=== PATIENT | male | born 1990 | race Caucasian/White ===

== ENCOUNTER 2025-02-01 09:08 | Emergency (ER) | payer OTHER, SELFPAY ==
[2025-02-01 09:08] VITALS: BP 124/89; PULSE 73; RESP 14; TEMP 36.1; O2SAT 98; BMI 48.5
[2025-02-01 09:41] LABS: Bacteria 0 SEEN /hpf (None Seen); Mucous, Urine 0 SEEN /hpf (<or=2+); Squamous Epithelial Cells - UA 0 SEEN /hpf (0-5)
--- NOTE | 2025-02-01 09:43 | EX.ED.DYSGE1 ---
HPI History of Present Illness Chief Complaint: Complaint Narrative Narrative: Patient is a 35-year-old male who presents to the emergency department with a chief complaint of lower abdominal pain. He states that when he was a young child he was told that he had a piece of tissue blocking his 1 ureter that ultimately required intervention. He states that over the last 1 to 2 years he has felt like he has had some difficulty emptying his bladder completely however the last 1 to 2 weeks this is significantly worsened. He states that he followed up with his doctor recently had a ultrasound of his bladder and was told that it was full and was advised to come to the emergency department to be evaluated. He states that he is scheduled to see the urologist Dr. Hogue but will not be able to get until Saturday. PFSH PFSH Medical History no medical history Home Medications ?Medication ?Instructions ?Recorded ?Last Taken ?Type Fish OiL 02/01/25 Unknown History coQ10 (ubiquinol) 100 mg capsule 100 mg PO DAILY 02/01/25 Unknown History red yeast rice PO 02/01/25 01/31/25 History saw-vit E-sod [id number]-pyg PO 02/01/25 Unknown History tamsulosin 0.4 mg capsule (Flomax) 0.4 mg PO DAILY 14 days #14 caps 02/01/25 Unknown Rx Allergy/AdvReac Type Severity Reaction Status Date / Time No Known Allergies Allergy Verified 02/01/25 09:09 Surgical History no surgical history Social History Smoking Status: Never smoker ROS ROS ED ROS Narrative Constitutional: Denies any fevers, chills, headaches, lightness, dizziness Cardiovascular: Denies chest pain or palpitations Respiratory: Denies cough wheezing shortness of breath Abdomen: Denies abdominal pain nausea vomiting diarrhea : Complains of urinary symptoms as noted above Neurological: Denies numbness, weakness, tingling Musculoskeletal: Denies back pain Skin: Denies any rashes or lesions EXAM Physical Exam Narrative Exam Narrative: General: Patient lying in bed rest comfortably did not appear to be in acute distress Head: Atraumatic, normocephalic Eyes: PERRL bilaterally, EOMI bilateral, no conjunctival injection noted Neck: Soft, supple, trachea midline Cardiovascular: Regular rate and rhythm no murmurs gallops rubs noted Respiratory: Clear to auscultation bilaterally Abdomen: Soft, nondistended, tenderness to palpation in the right lower quadrant in the suprapubic region no rebound or guarding on exam Extremities: +5/5 strength noted in the bilateral upper and lower extremities, radial pulses +2/4 in the bilateral extremities Neurological: Patient was following commands knew that he was at [facility] year is 2024 Skin: Warm, dry, intact no rashes or lesions noted Const Vital Signs: 02/01/25 09:08 02/01/25 11:08 Temperature 97 F L Temperature Source Temporal Pulse Rate 73 70 Respiratory Rate 14 18 Blood Pressure 124/89 H 128/70 H Blood Pressure Mean 100 89 Pulse Ox 98 98 Oxygen Delivery Method Room Air MDM MDM MDM Narrative Medical decision making narrative: Patient is a 35-year-old male who presented to the emergency department the chief complaint of difficulty completing emptying his bladder. On the differential diagnosis includes but not limited to urinary tension, ZOLTAN, UTI, appendicitis, bowel obstruction. Once workup is obtained and reviewed he will be reevaluated. Patient urinated here in the emergency day prior to this he had 230 cc of urine in his bladder after urinating he had 75 cc. Patient's CBC reviewed showed a white blood count 11,000, hemoglobin 15.4, platelet count of 190. Patient sodium was 137, potassium of 4.3, creatinine normal at 0.94. Patient's AST and ALT were 28 and 43 respectively normal total bilirubin 1.37. Patient urinalysis reviewed showed 25 occult blood 100 leukocyte esterase negative nitrites 0-5 white cells with no bacteria noted. Patient's CT abdomen pelvis with IV contrast reviewed and showed severe atrophy of the left kidney most likely due to chronic obstruction. There is left nephrolithiasis and urolithiasis as described . 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 There is diffuse ectasia of the ureter distal to the stenosis there is no right nephrolithiasis or urolithiasis. Benign hepatic, angioma. Appendix appears normal. Discussed the results with on-call urologist Dr. Hogue who reviewed the CT images himself and states that he can follow-up at his scheduled appointment next week. I discussed this with the patient and he states that he would like a hard copy of his CT results which were printed off and given to him. He will be placed on Flomax. He is advised to return with worsening symptoms and concerns. He was concerned about this issue with only having 1 kidney and I reassured him that I spoke with the urologist and this is the definitive plan. I advised if he is worried about his kidney function to have this repeated middle of the week to ensure that this is remaining stable. I advised that this is likely been going on for a significant mount time as noted above. He was ultimately agreeable with this plan as well as significant other bedside all course concerns answered discharged home in stable condition. Lab Data Labs: Laboratory Results - last 24 hr 02/01/25 02/01/25 09:30 09:50 WBC 11.9 H RBC 5.58 Hgb 15.4 Hct 45.8 MCV 82.1 MCH 27.6 MCHC 33.6 RDW Std Deviation 37.2 RDW Coeff of Curly 12.4 Plt Count 190 MPV 9.9 Immature Gran % (Auto) 0.300 Neut % (Auto) 73.5 H Lymph % (Auto) 18.1 L [place] % (Auto) 7.1 Eos % (Auto) 0.7 Baso % (Auto) 0.3 Absolute Neuts (auto) 8.8 H Absolute Lymphs (auto) 2.16 Nucleated RBC % 0 Sodium 137 Potassium 4.3 Chloride 101 Carbon Dioxide 24.2 Anion Gap 12 BUN 14 Creatinine 0.94 Estim Creat Clear Calc 155.38 Est GFR (MDRD) Non-Af 107 BUN/Creatinine Ratio 14.9 Glucose 95 Calcium 9.9 Total Bilirubin 1.37 H AST 28 ALT 43 Alkaline Phosphatase 90 Total Protein 7.5 Albumin 4.3 Globulin 3.1 Albumin/Globulin Ratio 1.4 Lipase 42 Urine Color Yellow Urine Clarity Clear Urine pH 6.0 Ur Specific [place] 1.010 Urine Protein 15 H Urine Glucose (UA) Normal Urine Ketones Negative Urine Occult Blood 25 H Urine Nitrite Negative Urine Bilirubin Negative Urine Urobilinogen Normal Ur Leukocyte Esterase 100 H Urine RBC 0-5 SEEN Urine WBC 0-5 SEEN Ur Squamous Epith Cells 0 SEEN Urine Bacteria 0 SEEN Urine Mucus 0 SEEN Radiography Diagnostic Testing: Clinical Impression(s) from Imaging Studies Abdomen/Pelvis CT 02/01/25 10:05 IMPRESSION: 1. Severe atrophy of the left kidney, most likely due to chronic obstruction. There is left nephrolithiasis and ureterolithiasis as described. 2. 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 There is diffuse ectasia of the ureter distal to the stenosis. There is no right nephrolithiasis or ureterolithiasis. 3. Benign hepatic hemangioma. 4. Other findings as noted. Reading Location: [id number] Discharge Plan Triage Chief Complaint: Complaint ED Provider: Alonzo Lance Dx/Rx/DC Orders Clinical Impression: Stenosis of ureteropelvic junction (UPJ) Prescriptions: New tamsulosin [Flomax] 0.4 mg capsule 0.4 mg PO DAILY 14 Days Qty: 14 0RF No Action Fish OiL red yeast rice PO saw-vit E-sod [id number] [Prostate Health] PO coQ10 (ubiquinol) 100 mg capsule 100 mg PO DAILY Primary Care Provider: Edu Syed Referrals: Edu Syed PA-C [Primary Care Provider] - Jonathan Hogue MD [Med Staff - Active Staff] - Activity Restrictions/Additional Instructions: Follow-up with the urologist at your scheduled appointment. Take Flomax as prescribed. Return with worsening symptoms or any concerns. If you want to check your kidney function in the middle the week call your doctor for this to be done. Print Language: Grenadian Disposition Disposition: Home, Self Care
[2025-02-01] MEDS: 0.9% Normal Saline (1000mL) 1,000 ML 999 ML IV (09:53)
[2025-02-01 09:54] LABS: Color, Urine Yellow (Yellow); Glucose, Dipstick Normal (Normal); Ketone-Dipstick Negative (Negative); Leukocyte Esterase-Dipstick 100 /ul (Negative); Nitrite-Dipstick Negative (Negative); Occult Blood-Urine 25 /ul (Negative); Protein-Dipstick 15 mg/dl (Negative); Urine Bilirubin Dipstick Negative (Negative); Urine Clarity Clear (Clear); Urine Urobilinogen Normal (Normal)
[2025-02-01 09:56] LABS: Absolute Lymphocyte Count 2.16 X10^3/uL (0.83-4.51); Absolute Neutrophil Count 8.8 X10^3/uL (2.0-7.7); Basophil# 0.03 X10^3/uL; Basophil% 0.3 % (0-1); Eosinophil# 0.08 X10^3/uL; Eosinophils% 0.7 % (0-5); Hematocrit 45.8 % (40-54); Hemoglobin 15.4 g/dL (13.0-16.5); Lymphocyte # 2.16 X10^3/ul (0.83-4.51); Lymphocyte % 18.1 % (19-41); Mean Corp Hgb Conc 33.6 g/dL (32-36); Mean Corpuscular Hgb 27.6 pg (27.0-32.0); Mean Corpuscular Volume 82.1 fL (80-94); Mean Platelet Vol. 9.9 fl (6.2-12.0); Monocyte# 0.85 X10^3/uL; Monocyte% 7.1 % (0-10); NRBC Flagged by Analyzer 0 % (0-5); Neutrophil # 8.78 X10^3/uL (2.7-7.7); Neutrophil % 73.5 % (47-70); Platelet Count 190 K/mm3 (150-450); RBC Distribution Width CV 12.4 % (11.6-14.6); RBC Distribution Width SD 37.2 fl (35.1-43.9); Red Blood Count 5.58 M/mm3 (4.6-6.2); White Blood Count 11.9 K/mm3 (4.4-11.0)
[2025-02-01 10:01] LABS: Red Blood Cells-Urine 0-5 SEEN /hpf (0-5); White Blood Cells 0-5 SEEN /hpf (0-5)
--- NOTE | 2025-02-01 10:05 | CT_ITS ---
PROCEDURE: ABDOMEN/PELVIS W IV CONT ONLY 02/01/2025 REASON FOR EXAM: RLQ PAIN, DIFFICULTY URINATING, HX OF URETHRAL STR TECHNIQUE: ABDOMEN/PELVIS W IV CONT ONLY. Coronal and Sagittal reconstruction series were provided. ORAL CONTRAST TYPE: None. CONTRAST: Isovue 300 VOLUME: 99 mL One or more dose reduction techniques were used (e.g., Automated exposure control, adjustment of the mA and/or kV according to patient size, use of iterative reconstruction technique. RADIATION DOSE SUMMARY: CTDlvol: 27.8 mGy DLP: 897.69 mGycm COMPARISON: None. FINDINGS: Lung bases: The lung bases are clear. There are no pleural effusions. The heart size is normal. There is no pericardial effusion. Liver: There is a 3.0 cm mass in the posterior segment of the right hepatic lobe, consistent with a hemangioma. Gallbladder: Normal. Spleen: Normal. Pancreas: Normal. Adrenals: Normal. Kidneys: There is almost complete atrophy of the left kidney. There is no significant function by the left kidney. There are multiple calyceal and ureteral stones on the left, extending to the UVJ, max HU 578 there is a 3.6 cm in diameter cortical cyst in the interpolar region of the right kidney. There is a 1.9 cm in diameter cortical cyst in the interpolar region of the right kidney. There is a smaller cortical cyst in the lower pole of the right kidney. There are 2 calyceal diverticuli in the interpolar region of the right kidney. There is moderate pelvicaliectasis to the level of the UPJ where there is a stenosis. There is diffuse ectasia of the right ureter distal to the stenosis. There is no nephrolithiasis or ureterolithiasis on the right. Bladder: Normal. Reproductive Organs: The prostate gland is normal in size and contains coarse calcifications. Bowel: Unremarkable. Appendix: Normal. Lymph nodes: There is no significant mesenteric or retroperitoneal lymphadenopathy. Vasculature: The abdominal aorta, inferior vena cava, and portal venous system are normal. Abdominal wall: There is a 1.6 cm in diameter umbilical hernia containing normal fat. Bones: There are no significant bony abnormalities of the abdomen or pelvis. CT/Abdomen/Pelvis W IV Cont ONLY IMPRESSION: 1. Severe atrophy of the left kidney, most likely due to chronic obstruction. There is left nephrolithiasis and ureterolithiasis as described. 2. 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 There is diffuse ectasi a of the ureter distal to the stenosis. There is no right nephrolithiasis or ureterolithiasis. 3. Benign hepatic hemangioma. 4. Other findings as noted. Reading Location: [id number]
[2025-02-01 11:00] LABS: ALB/GLOB Ratio 1.4 RATIO (0.9-2.4); AST(SGOT) 28 U/L (<=37); Alanine Aminotransfer ALT/SGPT 43 U/L (<=46); Albumin, Serum 4.3 g/dL (3.5-5.0); Alkaline Phosphatase 90 U/L (40-129); Anion Gap 12 (5-15); BUN 14 mg/dL (4-19); BUN/Creat Ratio 14.9 RATIO (10-20); Calcium,Total 9.9 mg/dL (7.6-11.0); Carbon Dioxide 24.2 mmol/L (21.0-32.0); Chloride 101 mmol/L (98-108); Creatinine, Serum 0.94 mg/dL (0.70-1.20); EST Glomerular Filtration Rate 107 (>60); Estimated Creatinine Clearance 155.38 ml/min (50-250); Globulin 3.1 g/dL (2.2-4.2); Glucose 95 mg/dL (70-99); Lipase 42 U/L (13-75); Potassium 4.3 mmol/L (3.3-5.1); Protein, Total 7.5 g/dL (5.9-8.4); Sodium Level 137 mmol/L (133-145); Total Bilirubin 1.37 mg/dL (0.00-1.30)
[2025-02-01 11:08] VITALS: BP 128/70; PULSE 70; RESP 18; O2SAT 98
[2025-02-01 12:41] VITALS: BP 126/80; PULSE 75; RESP 18; O2SAT 98
== END 2025-02-01 12:43 | disposition home or self-care (01) ==
PROVIDERS: Emergency Provider Emergency Medicine; PCP Physician Assistant; Visit Provider Emergency Medicine
DX: N13.0 Hydronephrosis with ureteropelvic junction obstruction (principal); D18.03 Hemangioma of intra-abdominal structures
CPT/HCPCS: 74177; 80053; 81001; 83690; 85025; 96360; 96361; 99282; Q9967; A4216